=== PATIENT | male | born 1935 | race Asian ===

== ENCOUNTER 2016-02-20 11:10 | Observation (INO) | payer OTHER ==
--- NOTE | 2016-02-20 11:49 | CPEKG ---
Heart Rate: 77 RR Interval: 779 P-R Interval: 160 QRSD Interval: 90 QT Interval: 400 QTC Interval: 453 P [place]: 32 QRS [place]: -21 T Wave [place]: 4 EKG Severity - ABNORMAL ECG - EKG Impression: SINUS RHYTHM EKG Impression: PROBABLE LEFT ATRIAL ABNORMALITY EKG Impression: INFERIOR INFARCT, AGE INDETERMINATE Electronically Signed By: Theodora Kaur 20-Feb-2016 15:20:41
[2016-02-20 11:56] LABS: ABSOLUTE IMMATURE GRANULOCYTES 0.08 10^3/uL (0.00-0.10); ADD DIFF? NO; ADD MORPH? NO; ADD SCAN? NO; ATYPICAL LYMPHOCYTE FLAG 0 (0-99); FRAGMENT RBC FLAG 0 (0-99); HEMOGLOBIN 16.1 g/dL (13.7-17.5); LEFT SHIFT FLG 0 (0-99); LIPEMIA HEMOLYSIS FLAG 90 (0-99); MEAN CELL HEMOGLOBIN 30.2 pg (27.9-34.1); MEAN CELL HEMOGLOBIN CONCENTR. 35.8 g/dL (32.4-36.7); MEAN CELL VOLUME 84.4 fL (81.5-99.8); MEAN PLATELET VOLUME 8.6 fL (8.7-11.7); PLATELET CLUMPS FLAG 0 (0-99); PLATELET COUNT 404 10^3/uL (150-400); RED BLOOD CELL COUNT 5.33 10^6/uL (4.40-6.38); RED CELL DISTRIBUTION WIDTH 12.9 % (11.5-15.2)
--- NOTE | 2016-02-20 11:56 | EDPHY ---
H & P Stated Complaint: HTN while at dentist office, pt had pseuophed and coffee this am - Personal History Current Tetanus/Diphtheria Vaccine: Yes Current Tetanus Diphtheria and Acellular Pertussis (TDAP): Yes - Medical/Surgical History Hx Asthma: No Hx Chronic Respiratory Disease: No Hx Diabetes: No Hx Cardiac Disease: No Hx Renal Disease: No Hx Cirrhosis: No Hx Alcoholism: No Hx HIV/AIDS: No Hx Splenectomy or Spleen Trauma: No Other PMH: JOINT PAIN/HTN, dental, siatic pain - Social History Smoking Status: Never smoked Time Seen by Provider: 02/20/16 11:40 HPI/ROS: CHIEF COMPLAINT: Dizziness, hypertension HISTORY OF PRESENT ILLNESS: Patient was at the dentist's office this morning when they noted that his blood pressure was elevated there he was therefore crown placement. At the time he noted some dizziness but no headache. No chest pain. No abdominal pain. No urinary complaints. Does have known hypertension, and takes Diovan for this. Despite this, he continues to take caffeine pills as well as Sudafed although he knows this is ill-advised. He has no neuro complaints. He feels much better at rest. No other associated complaints or modifying factors. REVIEW OF SYSTEMS: Ten systems reviewed and are negative unless otherwise noted in the HPI EXAMINATION General Appearance: Alert, no distress Head: normocephalic, atraumatic Eyes: Pupils equal and round, no conjunctival pallor or injection , cataract bilaterally. No subconjunctival hemorrhage or hyphema ENT, Mouth: Mucous membranes moist Neck: Normal inspection, supple, non-tender Respiratory: Lungs are clear to auscultation Cardiovascular: Regular rate and rhythm Gastrointestinal: Abdomen is soft and nontender Back: non-tender, no bony abnormalities Neurological: A&O, cranial nerves 2-12 grossly intact. nonfocal, Negative pronator drift. Strength is 5/5 symmetrically. Sensation intact symmetrically. Skin: Warm and dry, no rash Extremities: Nontender, no pedal edema Psychiatric: Mood and affect normal DIFFERENTIAL DIAGNOSES: 1. Hypertensive urgency 2. hypertension 3. dizziness 4. near syncope MDM: hypertension patient with known hypertension who continues to take caffeine pills and take Sudafed despite recommendations from his providers. He has no chest pain. He has no headache. He does have mild dizziness with ambulation. He has reportedly normal organ function from laboratory studies in the fall. He remains awake and alert conversant appropriately with normal neuro examination other than reported dizziness. Vital signs do reveal systolic hypertension of 180 with diastolic of 120. Otherwise vital signs are within normal limits. 13:30 Notified the patient's troponin is mildly elevated at 0.037. He is having no chest pain of any kind, and his EKG is not reveal any ischemia. He does however have persistent elevated systolic and diastolic blood pressure. He has no headache but does have some dizziness. CT scan of the head was read as unremarkable for acute findings. There is noted atrophy and mild calcification. Labs are otherwise within normal limits without any evidence of end-organ damage. However given the troponin, we will admit him for care. This has been discussed with the hospitalist by Dr. Kaur. he is admitted in stable condition with hypertension. Treatment will commence in the emergency department. EKG: Interpreted by Dr. Kaur SUPERVISION: Patient was evaluated in conjunction with Dr. Kaur. Please see their note for details. (Juancarlos Salmon) Constitutional: Initial Vital Signs Temperature (C) 36.5 C 02/20/16 11:21 Heart Rate 85 02/20/16 11:21 Respiratory Rate 16 02/20/16 11:21 Blood Pressure 201/115 H 02/20/16 11:21 O2 Sat (%) 98 02/20/16 11:21 O2 Delivery Mode Room Air Allergies/Adverse Reactions: aspirin Allergy (Mild, Verified 01/25/15 21:20) GI upset Home Medications: Medication Instructions Recorded Acetaminophen [Tylenol ES 500 mg 500 mg PO DAILY PRN 02/20/16 (*)] Atorvastatin Calcium [Lipitor 20 20 mg PO DAILY@182902/20/16 mg (*)] Herbals/Supplements -Info Only 1 ea PO DAILY 02/20/16 Naproxen Sodium [Aleve 220 MG (*)] 220 mg PO QID PRN 02/20/16 Sennosides/Docusate Sodium 1 each PO DAILY@1829 PRN 02/20/16 [Senna-Docusate Sodium Tablet] Valsartan/Hydrochlorothiazide 1 each PO DAILY@182902/20/16 [Diovan Hct 160-25 mg Tablet] Medical Decision Making - Diagnostics EKG Interpretation: 12 lead EKG is interpreted in Trace master View by emergency department physician. (Theodora Kaur) Imaging: Two-view chest x-ray reviewed by me in PACs. No acute pulmonary disease. ( Theodora Kaur) Other Provider: I have evaluated and participated in the management of this patient. My co- signature indicates that I have reviewed this chart and that I agree with the findings and the plan of care as documented. My personal history and physical findings include: 80-year-old with a history of hypertension for which she takes Diovan. He is compliant with his medication, taking it every evening. His blood pressures usually run in the 140/90 range. He does not check it regularly at home. This morning he saw his dentist and was found to be hypertensive, prompting his referral to the emergency department. Patient denies chest pain, shortness of breath, dizziness or lightheadedness, headache, and hematuria. On exam he is awake and alert. Heart is regular rate and rhythm without murmur. Lungs are clear to auscultation. Abdomen is soft and nontender. Extremities are without edema. I reviewed his EKG. I reviewed his laboratory studies which show a troponin that is very slightly elevated at 0.037. He has remained hypertensive in the emergency department with systolic pressures over 200 and diastolic pressures in the 110-120 range. I evaluated him three times during his stay in the department. At the time of my 2nd evaluation his blood pressure was 170/110. He is being given labetalol 100 mg orally. He is being admitted to the PCU by Dr. Felicia Fernández. At 3:50 p.m. is blood pressure is 163/125. He continues to deny chest pain. He does have signs of an inferior infarct on his EKG with Q-waves in leads 3 and AVF. By his report, he has never had a myocardial infarction. I suspect that his hypertension today is related to his use of caffeine and use of Sudafed. Differential diagnosis includes hypertensive emergency, hypertensive urgency, hypertension secondary to medication noncompliance, hypertension secondary to use of stimulants (Sudafed and caffeine), and acute coronary syndrome. (Theodora Kaur) - Data Points Laboratory Results: Laboratory Results 02/20/16 11:50 02/20/16 11:50 02/20/16 11:50 WBC 7.69 10^3/uL (3.80-9.50) RBC 5.33 10^6/uL (4.40-6.38) Hgb 16.1 g/dL (13.7-17.5) Hct 45.0 % (40.0-51.0) MCV 84.4 fL (81.5-99.8) MCH 30.2 pg (27.9-34.1) MCHC 35.8 g/dL (32.4-36.7) RDW 12.9 % (11.5-15.2) Plt Count 404 H 10^3/uL (150-400) MPV 8.6 L fL (8.7-11.7) Neut % (Auto) 73.2 % (39.3-74.2) Lymph % (Auto) 14.6 L % (15.0-45.0) [place] % (Auto) 8.5 % (4.5-13.0) Eos % (Auto) 2.3 % (0.6-7.6) Baso % (Auto) 0.4 % (0.3-1.7) Nucleat RBC Rel Count 0.0 % (0.0-0.2) Absolute Neuts (auto) 5.63 10^3/uL (1.70-6.50) Absolute Lymphs (auto) 1.12 10^3/uL (1.00-3.00) Absolute Monos (auto) 0.65 10^3/uL (0.30-0.80) Absolute Eos (auto) 0.18 10^3/uL (0.03-0.40) Absolute Basos (auto) 0.03 10^3/uL (0.02-0.10) Absolute Nucleated RBC 0.00 10^3/uL (0-0.01) Immature Gran % 1.0 % (0.0-1.1) Immature Gran # 0.08 10^3/uL (0.00-0.10) Sodium 127 L mEq/L (134-144) Potassium 4.1 mEq/L (3.5-5.2) Chloride 91 L mEq/L (97-110) Carbon Dioxide 24 mEq/l (22-31) Anion Gap 12 mEq/L (8-16) BUN 14 mg/dL (7-23) Creatinine 0.8 mg/dL (0.7-1.3) Estimated GFR > 60 Glucose 87 mg/dL (70-100) Calcium 9.9 mg/dL (8.5-10.4) Total Bilirubin 0.9 mg/dL (0.1-1.4) Conjugated Bilirubin 0.2 mg/dL (0.0-0.5) Unconjugated Bilirubin 0.7 mg/dL (0.0-1.1) AST 38 IU/L (17-59) ALT 26 IU/L (21-72) Alkaline Phosphatase 86 IU/L (38-126) Troponin I 0.037 H ng/mL (0-0.034) Total Protein 7.0 g/dL (6.3-8.2) Albumin 4.1 g/dL (3.5-5.0) Medications Given: Discontinued Medications Labetalol HCl (Trandate) 100 mg PO ONCE ONE Stop: 02/20/16 14:04 Last Admin: 02/20/16 14:45 Dose: 100 mg Departure - Departure Disposition: [facility] Acute Clinical Impression: Dizziness, Hypertensive emergency, Elevated troponin I level Hypertension Qualifiers: Hypertension type: essential hypertension Qualifier Code: (I10) Essential ( primary) hypertension Condition: Good
[2016-02-20 12:27] LABS: ALANINE AMINOTRANSFERASE 26 IU/L (21-72); ALBUMIN 4.1 g/dL (3.5-5.0); ALKALINE PHOSPHATASE 86 IU/L (38-126); ANION GAP 12 mEq/L (8-16); ASPARTATE AMINOTRANSFERASE 38 IU/L (17-59); BILIRUBIN,TOTAL 0.9 mg/dL (0.1-1.4); BILIRUBIN-CONJUGATED 0.2 mg/dL (0.0-0.5); BILIRUBIN-UNCONJUGATED 0.7 mg/dL (0.0-1.1); CALCIUM 9.9 mg/dL (8.5-10.4); CARBON DIOXIDE 24 mEq/l (22-31); CHLORIDE 91 mEq/L (97-110); CREATININE 0.8 mg/dL (0.7-1.3); GLOMERULAR FILTRATION RATE > 60; GLUCOSE 87 mg/dL (70-100); POTASSIUM 4.1 mEq/L (3.5-5.2); SODIUM 127 mEq/L (134-144)
[2016-02-20 12:37] LABS: TROPONIN I 0.037 ng/mL (0-0.034)
--- NOTE | 2016-02-20 13:17 | CT ---
CT Brain (Without Contrast) 1230 hours History: Dizziness, hypertensive urgency. Comparison: CT brain January 2015. Technique: Axial computed tomographic images of the brain without contrast. Dose reduction techniques were utilized. Findings: Ventricles, cisterns, and sulci are widened consistent with atrophy. No hydrocephalus, mid line shift/herniation, or epidural/subdural hematomas. No acute intraparenchymal hemorrhage or mass e ffect. Cerebrovascular atherosclerosis. Hypodensities in the white matter of bilateral cerebral hemis pheres. Bone windows demonstrate no displaced fractures. Paranasal sinuses and mastoid air cells are clear. Impression: 1. Mild atrophy. 2. No acute hemorrhage, hydrocephalus, or mass effect. 3. Cerebrovascular atherosclerosis. 4. No definite acute infarct. 5. Mild microvascular ischemic gliosis. 6. No brainstem or cerebellar hemorrhage. Findings and recommendations discussed with Emergency Department physician, Juancarlos Salmon PA-C, at 13 05 hours today. Final report concurs with initial preliminary interpretation.
[2016-02-20] MEDS ORDERED: LABETALOL HCL 100 MG TAB PO ONE (14:03)
--- NOTE | 2016-02-20 15:11 | DX ---
PA and Lateral Chest February 20, 2016 History: Persistent cough. Recent pneumonia. Comparison: None available. Findings: A nipple shadow overlies the left lung base. Scattered granulomas are suspected. There is n o pneumothorax or pleural effusion. Heart size is normal. The aorta is tortuous and ectatic. Chronic right rotator cuff tear is noted with severe subluxation of the humerus. Impressions 1. No acute findings in the chest. 2. Chronic tear of the right rotator cuff.
[2016-02-20] MEDS ORDERED: ACETAMINOPHEN 325 MG TAB PO PRN (15:51)
[2016-02-20] MEDS ORDERED: TEMAZEPAM 15 MG CAP PO PRN (15:51)
[2016-02-20] MEDS ORDERED: ONDANSETRON 4 MG/2 ML VIAL IVP PRN (15:51)
[2016-02-20] MEDS ORDERED: ONDANSETRON DISINTEGRATING 4 MG TAB PO PRN (15:51)
--- NOTE | 2016-02-20 16:16 | PDGENHP ---
History and Physical - Chief Complaint elevated blood pressure - History of Present Illness 80 yo male with h/o hypertension presents to ED from his dental office, where he was found to have elevated blood pressure prior to a crown procedure. He denies headache or vision changes, but reports some dizziness. He denies CP or SOB. No cough, fevers or chills. No N/V/D or abdominal pain, but he complains of hunger. He take Diovan for hypertension, but apparently uses caffeine pills and sudafed as well. In the Emergency department, he was found to have BP greater than 200/100 along with a mildly elevated troponin. He is admitted to the hospital for further management. History Information - Allergies/Home Medication List Allergies/Adverse Reactions: aspirin Allergy (Mild, Verified 01/25/15 21:20) GI upset Home Medications: Acetaminophen [Tylenol ES 500 mg (*)] 500 mg PO DAILY PRN 02/20/16 [Last Taken Unknown] Atorvastatin Calcium [Lipitor 20 mg (*)] 20 mg PO DAILY@182902/20/16 [Last Taken 02/19/16] Herbals/Supplements -Info Only 1 ea PO DAILY 02/20/16 [Last Taken Unknown] Naproxen Sodium [Aleve 220 MG (*)] 220 mg PO QID PRN 02/20/16 [Last Taken Unknown] Sennosides/Docusate Sodium [Senna-Docusate Sodium Tablet] 1 each PO DAILY@1829 PRN 02/20/16 [Last Taken Unknown] Valsartan/Hydrochlorothiazide [Diovan Hct 160-25 mg Tablet] 1 each PO DAILY@ 182902/20/16 [Last Taken 02/19/16] I have personally reviewed and updated: family history, medical history, social history, surgical history - Past Medical History hypertension - Surgical History Reports: no pertinent surgical hx - Family History Positive for: hypertension - Social History Smoking Status: Never smoked Alcohol Use: None Drug Use: None (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 He drinks caffeine regularly.) Review of Systems ROS: 10pt was reviewed & negative except for what was stated in HPI & below Physical Exam Temp Pulse Resp BP Pulse Ox 36.9 C 76 16 192/121 H 94 02/20/16 12:59 02/20/16 13:00 02/20/16 13:00 02/20/16 13:00 02/20/16 13:00 Constitutional: no apparent distress Eyes: PERRL Ears, Nose, Mouth, Throat: moist mucous membranes Cardiovascular: regular rate and rhythym, no murmur, rub, or gallop Respiratory: no respiratory distress, clear to auscultation Gastrointestinal: normoactive bowel sounds, soft, non-tender abdomen Skin: warm Musculoskeletal: full muscle strength Neurologic: AAOx3 Psychiatric: interacting appropriately Lab Data & Imaging Review 02/20/16 11:50 02/20/16 11:50 WBC 7.69 10^3/uL (3.80-9.50) 02/20/16 11:50 RBC 5.33 10^6/uL (4.40-6.38) 02/20/16 11:50 Hgb 16.1 g/dL (13.7-17.5) 02/20/16 11:50 Hct 45.0 % (40.0-51.0) 02/20/16 11:50 MCV 84.4 fL (81.5-99.8) 02/20/16 11:50 MCH 30.2 pg (27.9-34.1) 02/20/16 11:50 MCHC 35.8 g/dL (32.4-36.7) 02/20/16 11:50 RDW 12.9 % (11.5-15.2) 02/20/16 11:50 Plt Count 404 10^3/uL (150-400) H 02/20/16 11:50 MPV 8.6 fL (8.7-11.7) L 02/20/16 11:50 Neut % (Auto) 73.2 % (39.3-74.2) 02/20/16 11:50 Lymph % (Auto) 14.6 % (15.0-45.0) L 02/20/16 11:50 [place] % (Auto) 8.5 % (4.5-13.0) 02/20/16 11:50 Eos % (Auto) 2.3 % (0.6-7.6) 02/20/16 11:50 Baso % (Auto) 0.4 % (0.3-1.7) 02/20/16 11:50 Nucleat RBC Rel Count 0.0 % (0.0-0.2) 02/20/16 11:50 Absolute Neuts (auto) 5.63 10^3/uL (1.70-6.50) 02/20/16 11:50 Absolute Lymphs (auto) 1.12 10^3/uL (1.00-3.00) 02/20/16 11:50 Absolute Monos (auto) 0.65 10^3/uL (0.30-0.80) 02/20/16 11:50 Absolute Eos (auto) 0.18 10^3/uL (0.03-0.40) 02/20/16 11:50 Absolute Basos (auto) 0.03 10^3/uL (0.02-0.10) 02/20/16 11:50 Absolute Nucleated RBC 0.00 10^3/uL (0-0.01) 02/20/16 11:50 Immature Gran % 1.0 % (0.0-1.1) 02/20/16 11:50 Immature Gran # 0.08 10^3/uL (0.00-0.10) 02/20/16 11:50 Sodium 127 mEq/L (134-144) L 02/20/16 11:50 Potassium 4.1 mEq/L (3.5-5.2) 02/20/16 11:50 Chloride 91 mEq/L (97-110) L 02/20/16 11:50 Carbon Dioxide 24 mEq/l (22-31) 02/20/16 11:50 Anion Gap 12 mEq/L (8-16) 02/20/16 11:50 BUN 14 mg/dL (7-23) 02/20/16 11:50 Creatinine 0.8 mg/dL (0.7-1.3) 02/20/16 11:50 Estimated GFR > 60 02/20/16 11:50 Glucose 87 mg/dL (70-100) 02/20/16 11:50 Calcium 9.9 mg/dL (8.5-10.4) 02/20/16 11:50 Total Bilirubin 0.9 mg/dL (0.1-1.4) 02/20/16 11:50 Conjugated Bilirubin 0.2 mg/dL (0.0-0.5) 02/20/16 11:50 Unconjugated Bilirubin 0.7 mg/dL (0.0-1.1) 02/20/16 11:50 AST 38 IU/L (17-59) 02/20/16 11:50 ALT 26 IU/L (21-72) 02/20/16 11:50 Alkaline Phosphatase 86 IU/L (38-126) 02/20/16 11:50 Troponin I 0.037 ng/mL (0-0.034) H 02/20/16 11:50 Total Protein 7.0 g/dL (6.3-8.2) 02/20/16 11:50 Albumin 4.1 g/dL (3.5-5.0) 02/20/16 11:50 Assessment & Plan Assessment: Hypertensive urgency - Elevated BP likely exacerbated by use of Sudafed and caffeine. Pt received 100 mg po Labetalol in ED and though SBP improved to 160' s, DBP still quite elevated at 125. CXR clear. CT head neg. -admit to PCU -start nicardipine drip with goal to reduce DBP <100 -continue oral meds and up-titrate as needed to wean off drip Elevated troponin - Mild. Pt is CP free. EKG shows no acute ischemia, but there are some Q waves in inferior leads. Pt denies h/o NH. -trend troponin -repeat EKG -check echo, query LVH, eval for WMA Hyponatremia - this is acute, prior Na level ~140. -fluid restrict -defer IVF's for now -check urine Na, Cr -repeat in am DVT PPLX - Lovenox Full code Dispo - obs.
[2016-02-20] MEDS ORDERED: METOPROLOL TARTRATE 25 MG TAB PO SCH (16:30)
[2016-02-20] MEDS ORDERED: niCARdipine/NACL 200 ML IV SCH (16:30)
[2016-02-20] MEDS ORDERED: VALSARTAN PO SCH (18:30)
[2016-02-20] MEDS ORDERED: [UNRECOGNIZED DRUG - OTHER] PO SCH (18:30)
[2016-02-20] MEDS ORDERED: ATORVASTATIN CALCIUM 20 MG TAB PO SCH (18:30)
[2016-02-20] MEDS ORDERED: VALSARTAN 160 MG TAB PO SCH (18:30)
[2016-02-20] MEDS ORDERED: HYDROCHLOROTHIAZIDE PO SCH (18:30)
[2016-02-20] MEDS ORDERED: HYDROCHLOROTHIAZIDE 25 MG TAB PO SCH (18:30)
[2016-02-20] MEDS ORDERED: SENNOSIDES/DOCUSATE SODIUM TAB PO PRN (18:30)
[2016-02-20] MEDS: METOPROLOL TARTRATE 25 MG TAB PO SCH (20:55)
[2016-02-21 05:17] LABS: ANION GAP 12 mEq/L (8-16); CALCIUM 9.6 mg/dL (8.5-10.4); CARBON DIOXIDE 24 mEq/l (22-31); CHLORIDE 93 mEq/L (97-110); CREATININE 1.1 mg/dL (0.7-1.3); GLOMERULAR FILTRATION RATE > 60; GLUCOSE 89 mg/dL (70-100); SODIUM 129 mEq/L (134-144)
[2016-02-21 05:53] VITALS: RESP 16
[2016-02-21 07:15] VITALS: BP 142/78; PULSE 61; TEMP 97.3; O2SAT 90
[2016-02-21] MEDS ORDERED: HYDROCHLOROTHIAZIDE PO SCH (08:00)
[2016-02-21] MEDS ORDERED: [UNRECOGNIZED DRUG - OTHER] PO SCH (08:00)
[2016-02-21] MEDS ORDERED: VALSARTAN PO SCH (08:00)
[2016-02-21] MEDS: METOPROLOL TARTRATE 25 MG TAB PO SCH (08:02)
[2016-02-21] MEDS ORDERED: ENOXAPARIN 40 MG/0.4 ML SYR SC SCH (09:00)
--- NOTE | 2016-02-21 09:10 | CPEKG ---
Heart Rate: 60 RR Interval: 1000 P-R Interval: 176 QRSD Interval: 86 QT Interval: 456 QTC Interval: 456 P [place]: 47 QRS [place]: 26 T Wave [place]: -86 EKG Severity - ABNORMAL ECG - EKG Impression: SINUS RHYTHM EKG Impression: bi-atrial enlargement EKG Impression: probable RVH and LVH. EKG Impression: ST depression lateral c/w LVH strain. Electronically Signed By: Kale Aguilar 21-Feb-2016 16:48:10
--- NOTE | 2016-02-21 10:52 | ECHO ---
[id number] + + [id number] : : [place] [id number] : : [phone] + + Adult Echocardiographic Report + ---+ :Name: SYLVIA ALEXANDRAKASEY JStudy Date: 02/20/2016 04:44 PM BP: 170/116 mmHg : : Hospital Admission Number: [id number] Location: ER: :: 1935 Gender: Male Height: 66 in : :Age: 80 yrs Race: Weight: 165 lb : :Reason For Study: HTN : : BSA: 1.8 meters2 : :History: hypertensive urgency, LVH on ecg : + ---+ MMode/2D Measurements & Calculations IVSd: 1.3 cm RVDd: 3.2 cm FS: 42.0 % Ao root diam: LVPWd: 0.95 cm LVIDd: 3.5 cm EDV(Teich): 52.6 ml 3.5 cm LVIDs: 2.1 cm ESV(Teich): 13.7 ml LA dimension: EF(Teich): 73.9 % 3.3 cm LVOT diam: LVLd ap4: 9.6 cm SV(MOD-sp4): 1.9 cm EDV(MOD-sp4): 136.0 ml LVOT area: 185.0 ml 2.8 cm2 LVLs ap4: 8.2 cm ESV(MOD-sp4): 49.0 ml EF(MOD-sp4): 73.5 % Normal Measurement Values: + + :LVIDd (3.5-5.7cm) IVSd (0.6-1.1cm) LVPWd (0.6-1.1cm) Aortic Root (2.0-3.7cm)Left Atrium (1.5-4.0cm): :LV Vol(d) (76-115ml) LV Vol(s) (29-48ml) Ejec Fraction (50-65%)PV Terry (0.6- 1.2m/s) TV Terry (0.4-1.0m/s) : :MV E Terry (0.8-1.0m/s)MV A Terry (0.3-1.0m/s)LVOT Terry (0.7-1.2m/s) Asc Ao Terry ( 0.9-1.8m/s) : + + Doppler Measurements & Calculations MV E max terry: Ao V2 max: AI max terry: LV V1 max: 49.4 cm/sec 162.0 cm/sec 277.0 cm/sec 103.0 cm/sec MV A max terry: Ao max PG: AI max P.7 mmHgLV V1 max P.0 cm/sec 10.5 mmHg AI dec slope: 4.2 mmHg MV E/A: 0.44 ANDRES(V,D): 1.8 cm2 107.0 cm/sec2 MV dec time: AI P1/2t: 758.2 msec 0.35 sec PA V2 max: TR max terry: 88.0 cm/sec 273.0 cm/sec PA max P.1 mmHgTR max P.8 mmHg RAP systole: 5.0 mmHg RVSP(TR): 34.8 mmHg Left Ventricle The left ventricle is normal in size and function. There is mild concentric left ventricular hypertrophy. Ejection Fraction = 70-75%. There is Doppler evidence for diastolic dysfunction. No regional wall motion abnormalities noted. Right Ventricle The right ventricle is normal in size and function. Atria The left atrial size is normal. Right atrial size is normal. Mitral Valve The mitral valve leaflets appear thickened, but open well. There is no mitral valve stenosis. There is mild to moderate mitral regurgitation. Tricuspid Valve The tricuspid valve is normal in structure and function. There is no tricuspid stenosis. There is mild tricuspid regurgitation. Right ventricular systolic pressure is 35mmHg. There is Doppler evidence for mild pulmonary hypertension. Aortic Valve The aortic valve is trileaflet. Mild Aortic Valve Calcification. There is no aortic stenosis. Mild aortic regurgitation. Pulmonic Valve The pulmonic valve is not well visualized. Great Vessels Borderline aortic root dilatation. Pericardium/Pleural There is no pericardial effusion. Conclusion A two-dimensional transthoracic echocardiogram, with color flow Doppler was performed. The left ventricle is normal in size and function. There is mild concentric left ventricular hypertrophy. Ejection Fraction = 70-75%. There is Doppler evidence for diastolic dysfunction. There is mild to moderate mitral regurgitation. There is mild tricuspid regurgitation. Right ventricular systolic pressure is 35mmHg. There is Doppler evidence for mild pulmonary hypertension. Mild aortic regurgitation. Borderline aortic root dilatation. Final Reading Physician: Eric Leroy MD electronically signed on 02/21/2016 10:51 AM Ordering Physician: Felicia Fernández Performed By: Lary Wynne
--- NOTE | 2016-02-21 21:03 | GDS ---
[f rep st] DISCHARGE SUMMARY DISCHARGE DIAGNOSES: 1. Hypertensive urgency. 2. Hyponatremia, improved. 3. Minimally elevated troponin which normalized. 4. Left ventricular hypertrophy by echocardiogram. HISTORY: For details, please see dictated history and physical by myself dated February 20, 2016. In brief, Mr. Segura is an 80-year-old male with a history of hypertension, who was found to have a markedl y elevated blood pressure in his dentist's office and was sent to the Emergency Department. In the E mergency Department, he complained of some vague dizziness, but otherwise denied headache, vision giana nges, chest pain, or shortness of breath. Given his markedly elevated blood pressure, he was is admi tted to the hospital for further management. HOSPITAL COURSE: In the Emergency Department, the patient received 100 mg of oral labetalol. A muade rdipine drip was ordered for slow, downward titration of his blood pressure, with a goal of 10-20% in itially. He was continued on his usual oral medication of valsartan/hydrochlorothiazide and low-dose metoprolol was added at 12.5 mg p.o. b.i.d. The following morning, his blood pressure had improved to 142/78. He also had a blood pressure as low as 117/64 earlier this morning. An echocardiogram wa s obtained, as his EKG was suggestive of LVH and indeed he does have mild concentric LVH. He had a m inimally elevated troponin on arrival of 0.037. Two more troponins following that were completely no rmal. The patient was chest pain-free and had a nonischemic EKG. I suspect this very minimal tropon in elevation was secondary to strain in the setting of a markedly elevated blood pressure. The patie nt reportedly takes Sudafed and drinks a lot of caffeine, and based on my conversation with him, it s ounds as though he only takes his blood pressure medications when he believes his blood pressure is e levated. I discussed with him at discharge the importance of taking his blood pressure medication ev day and he should avoid Sudafed. DISPOSITION: Patient is discharged home in stable condition. FOLLOWUP: The patient will follow up with his primary care physician, Dr. Joe Chilel, in 1-2 we eks for a blood pressure recheck and up-titration of medications as needed. DISCHARGE MEDICATIONS: Please see eSNF for complete updated outpatient medication list. New medications on discharge include: Metoprolol 12.5 mg p.o. b.i.d. (#30, no refills). /[id number]/MODL
== END 2016-02-21 10:58 | disposition home or self-care (01) ==
LOC: F2W 17:51
PROVIDERS: ADMIT Hospitalist; ATTEND Hospitalist
DX: I16.0 Hypertensive urgency (principal); E87.1 Hypo-osmolality and hyponatremia; R78.89 Finding of other specified substances, not normally found in blood; I51.7 Cardiomegaly; Z79.899 Other long term (current) drug therapy; M75.101 Unspecified rotator cuff tear or rupture of right shoulder, not specified as traumatic
CPT/HCPCS: 70450; 71020; 93005; 93306; 99285; G0378; J1650

== ENCOUNTER 2017-05-22 13:37 | Emergency (ER) | payer OTHER ==
[2017-05-22] MEDS ORDERED: PANTOPRAZOLE SODIUM 40 MG VIAL IVP ONE (14:01)
--- NOTE | 2017-05-22 14:07 | EDPHY ---
General - History Smoking Status: Never smoked Time Seen by Provider: 05/22/17 14:01 Narrative: CHIEF COMPLAINT: Vomiting, abdominal pain HISTORY OF PRESENT ILLNESS: Patient presents with complaints of epigastric abdominal pain and 1 episode of vomiting. He reports feeling nauseated last night and awoke at 4:00 a.m. Abruptly with 1 episode of vomiting. It is described as a "black liquid and food." Since then he has had epigastric abdominal pain. He feels that this is food poisoning as he ate a "tuvaluan tart" that was supposed to be could 1st. He has had no diarrhea. No constipation. No chest pain or shortness of breath. Epigastric pain is constant. It is mild to moderate. Worse with exertion. Worse when he attempted to drink water. No fever or chills. No trauma or injury. No bright red blood per emesis. No history of cirrhosis or varices. No previous abdominal pathology. Denies any alcohol use. No other associated complaints or modifying factors. REVIEW OF SYSTEMS: Ten systems reviewed and are negative unless otherwise noted in the HPI PCP: Dr. Mchugh SPECIALISTS: None PAST MEDICAL HISTORY: Hypertension, osteoarthritis PAST SURGICAL HISTORY: No recent surgeries. No history of abdominal surgery SOCIAL HISTORY: Nonsmoker. 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 Well-developed well-nourished but ambulating in the room. Head: normocephalic, atraumatic Eyes: Pupils equal and round, no conjunctival pallor or injection ENT, Mouth: Mucous membranes moist. Due to the midline. Neck: Normal inspection, supple, non-tender Respiratory: Lungs are clear to auscultation Cardiovascular: Regular rate and rhythm Gastrointestinal: Abdomen is soft and nondistended. Mild tenderness in the epigastrium. No palpable mass. No guarding. No rebound tenderness. No rigidity. No CVA tenderness strict Back: non-tender, no bony abnormalities Neurological: A&O, nonfocal, normal gait Skin: Warm and dry, no rash no petechiae or purpura Extremities: Nontender, no pedal edema Psychiatric: Mood and affect normal DIFFERENTIAL DIAGNOSES: Including but not limited to gastritis, gastroenteritis, ACS, pancreatitis, cholecystitis, cholelithiasis, esophagitis MDM: 2:00 p.m. Epigastric abdominal pain with 1 episode of vomiting late last night. No diarrhea. No bright red blood poor emesis but he does report dark liquid. He is declining a rectal exam at this time. He is in no acute distress. He has a benign abdominal examination with some tenderness in the epigastrium. Vital signs are stable with hypertension. I have ordered CT scan abdomen pelvis with IV laboratory studies and IV Protonix. I will discuss with Dr. Salgado. 2:08 p.m. Case discussed with Dr. Salgado. 2:45 p.m. Notified by RN. Patient blood pressure is elevated further than time arrival. Patient is not taking his blood pressure medication last night and this morning due to his complaints. I discussed with Dr. Salgado, I have ordered IV metoprolol as he takes p.o. Metoprolol. CBC is unremarkable and chemistry is pending. 3:[address] scan pending. 3:40 p.m. Notified by radiologist Dr. Crowe. CT scan of the abdomen pelvis reveals no acute findings. 3:55 p.m. Patient re-evaluated. He had just received the GI cocktail 5 min prior to me arriving. He also received Zofran at that time. When I entered the room, he vomited a small amount of dark brown emesis. I have sent a sample for occult blood. 4:30 p.m. Gastrocult is positive. I have re-evaluated the patient. He is tolerating intake of liquids and crackers at this time. Patient is suspected peptic ulcer , possible upper GI bleed. I did offer and recommend admission to the hospital given the patient's age, but he is declining. He has full capability of making this decision. His spouse is also adamant about going home. We discussed discharge home with Pepcid/antacid. We discussed clear liquid diet advancing slowly as tolerated. We discussed contacting primary care physician and GI physician for referral. We discussed ED precautions for any return of jens blood in the emesis, persistent vomiting, fever, chest pain or abdominal pain. He is comfortable this plan and discharged home stable condition. SUPERVISION: Patient was evaluated and examined in conjunction with my secondary supervising physician as documented. We have both examined the patient. (Juancarlos Salmon) Medical Decision Makin:30 p.m. I did examine the patient independently. He has no abdominal tenderness on my exam. He tells me that he does have symptoms consistent with peptic ulcer disease versus heartburn. He states that he occasionally gets upset stomach after eating and that there may have been blood in his vomit last night. His however states that he does not have ulcers and that he has a strong stomach and that he simply got food poisoning. I will give him a GI cocktail and Zofran and we are awaiting CT results. I suspect that he will need a endoscopy by GI at some point whether it is inpatient or outpatient. ( Marek Salgado) - Objective Vital Signs: Initial Vital Signs Temperature (C) 97.9 F 05/22/17 13:40 Heart Rate 90 05/22/17 13:40 Respiratory Rate 18 05/22/17 13:40 Blood Pressure 171/120 H 05/22/17 13:40 O2 Sat (%) 95 05/22/17 13:40 O2 Delivery Mode Room Air Allergies/Adverse Reactions: aspirin Allergy (Mild, Verified 05/22/17 13:37) GI upset Home Medications: Medication Instructions Recorded Acetaminophen [Tylenol ES 500 mg 500 mg PO DAILY PRN 02/20/16 (*)] Atorvastatin Calcium [Lipitor 20 20 mg PO DAILY@182902/20/16 mg (*)] Herbals/Supplements -Info Only 1 ea PO DAILY 02/20/16 Naproxen Sodium [Aleve 220 MG (*)] 220 mg PO QID PRN 02/20/16 Sennosides/Docusate Sodium 1 each PO DAILY@1829 PRN 02/20/16 [Senna-Docusate Sodium Tablet] Valsartan/Hydrochlorothiazide 1 each PO DAILY@182902/20/16 [Diovan Hct 160-25 mg Tablet] Metoprolol Tartrate [Lopressor 25 12.5 mg PO BID #30 tab 02/21/16 mg (*)] Famotidine [Pepcid 20 MG (*)] 20 mg PO BID #30 tab 05/22/17 Laboratory Results: Laboratory Results 05/22/17 14:06 05/22/17 14:06 Medications Given: Discontinued Medications Al Hydroxide/Mg Hydroxide (Maalox Susp) 30 ml PO ONCE ONE Stop: 05/22/17 15:30 Last Admin: 05/22/17 15:50 Dose: 30 ml Hyoscyamine Sulfate (Levsin, Hyomax-Sl) 0.25 mg PO ONCE ONE Stop: 05/22/17 15:30 Last Admin: 05/22/17 15:50 Dose: 0.25 mg Lidocaine (Lidocaine 2% Viscous) 15 ml PO ONCE ONE Stop: 05/22/17 15:30 Last Admin: 05/22/17 15:51 Dose: 15 ml Metoprolol Tartrate (Lopressor Injection) 5 mg IVP EDNOW ONE Stop: 05/22/17 14:46 Last Admin: 05/22/17 15:02 Dose: 5 mg Ondansetron HCl (Zofran) 4 mg IVP EDNOW ONE Stop: 05/22/17 15:30 Last Admin: 05/22/17 15:50 Dose: 4 mg Pantoprazole Sodium (Protonix) 40 mg IVP EDNOW ONE Stop: 05/22/17 14:02 Last Admin: 05/22/17 14:33 Dose: 40 mg Departure - Departure Disposition: Home, Routine, Self-Care Clinical Impression: Peptic ulcer disease Vomiting Qualifiers: Vomiting type: hematemesis Nausea presence: with nausea Qualified Code(s): K92.0 - Hematemesis Condition: Good Instructions: Peptic Ulcer (ED), Gastritis (ED) Additional Instructions: 1. Pepcid as prescribed until seen by primary care physician or GI physician 2. Contact primary care physician for re-evaluation and GI referral 3. Return to emergency department for any bright red blood per emesis, persistent emesis, fever, chest pain Referrals: Capri Woodward MD [Medical Doctor] - As per Instructions Willis Wang MD, FACG [Medical Doctor] - As per Instructions Prescriptions: Famotidine [Pepcid 20 MG (*)] 20 mg PO BID #30 tab
[2017-05-22 14:20] LABS: PLATELET COUNT 347 10^3/uL (150-400)
[2017-05-22] MEDS ORDERED: METOPROLOL TARTRATE 5 MG/5 ML INJ IVP ONE (14:45)
--- NOTE | 2017-05-22 14:51 | CPEKG ---
Heart Rate: 79 RR Interval: 759 P-R Interval: 172 QRSD Interval: 84 QT Interval: 384 QTC Interval: 441 P [place]: 18 QRS [place]: -11 T Wave [place]: -50 EKG Severity - ABNORMAL ECG - EKG Impression: SINUS RHYTHM EKG Impression: PROBABLE LEFT ATRIAL ABNORMALITY EKG Impression: INFERIOR INFARCT, AGE INDETERMINATE EKG Impression: CONSIDER POSTERIOR WALL INVOLVEMENT Electronically Signed By: Capri Woodward 23-May-2017 12:30:23
[2017-05-22] MEDS ORDERED: IOPAMIDOL (ISOVUE-300) 100 ML BTL ONE (14:58)
[2017-05-22] MEDS ORDERED: MAG HYDROX/AL HYDROX/SIMETH 30 ML UDCUP PO ONE (15:29)
[2017-05-22] MEDS ORDERED: HYOSCYAMINE SULFATE 0.125 MG TAB PO ONE (15:29)
[2017-05-22] MEDS ORDERED: LIDOCAINE 2% VISCOUS 15 ML UDCUP PO ONE (15:29)
[2017-05-22] MEDS ORDERED: ONDANSETRON 4 MG/2 ML VIAL IVP ONE (15:29)
[2017-05-22 17:03] VITALS: BP 141/127
== END 2017-05-22 17:05 | disposition home or self-care (01) ==
DX: K27.9 Peptic ulcer, site unspecified, unspecified as acute or chronic, without hemorrhage or perforation (principal); K92.0 Hematemesis; I10 Essential (primary) hypertension
CPT/HCPCS: 74177; 93005; 96374; 96375; 99285; J2405; Q9967

== ENCOUNTER → 2017-07-01 | Outpatient (CLI) | payer OTHER | LOC: FIMAGING 06:55 | PROVIDERS: ATTEND Orthopaedic Surgery Sports Medicine | DX: M23.221 Derangement of posterior horn of medial meniscus due to old tear or injury, right knee (principal); M17.11 Unilateral primary osteoarthritis, right knee; M25.461 Effusion, right knee; M71.21 Synovial cyst of popliteal space [Baker], right knee ==

== ENCOUNTER → 2017-11-19 | Outpatient (CLI) | payer OTHER ==
[~2017-11-19] MED LIST: IOPAMIDOL (ISOVUE 370) 100 ML BTL IV ONE
== END ==
LOC: FIMAGING 14:14
PROVIDERS: ATTEND Surgery
DX: I73.9 Peripheral vascular disease, unspecified (principal)
CPT/HCPCS: 75635; Q9967; 82565-PO

== ENCOUNTER 2018-01-09 14:30 | Emergency (ER) | payer OTHER ==
[2018-01-09 14:39] VITALS: BP 165/85
--- NOTE | 2018-01-09 14:41 | EDPHY ---
H & P Stated Complaint: L abd bruising Time Seen by Provider: 01/09/18 14:40 - Personal History Current Tetanus/Diphtheria Vaccine: Unsure Current Tetanus Diphtheria and Acellular Pertussis (TDAP): Unsure - Medical/Surgical History Hx Asthma: No Hx Chronic Respiratory Disease: No Hx Diabetes: No Hx Cardiac Disease: No Hx Renal Disease: No Hx Cirrhosis: No Hx Alcoholism: No Hx HIV/AIDS: No Hx Splenectomy or Spleen Trauma: No Other PMH: JOINT PAIN/HTN, dental, siatic pain, HTN - Social History Smoking Status: Never smoked Constitutional: Initial Vital Signs Temperature (C) 36.5 C 01/09/18 14:36 Heart Rate 69 01/09/18 14:36 Respiratory Rate 16 01/09/18 14:36 Blood Pressure 165/85 H 01/09/18 14:36 O2 Sat (%) 93 01/09/18 14:36 O2 Delivery Mode Room Air Allergies/Adverse Reactions: aspirin Allergy (Mild, Verified 01/09/18 14:35) GI upset Home Medications: Medication Instructions Recorded Acetaminophen [Tylenol ES 500 mg 500 mg PO DAILY PRN 02/20/16 (*)] Atorvastatin Calcium [Lipitor 20 20 mg PO DAILY@182902/20/16 mg (*)] Herbals/Supplements -Info Only 1 ea PO DAILY 02/20/16 Naproxen Sodium [Aleve 220 MG (*)] 220 mg PO QID PRN 02/20/16 Sennosides/Docusate Sodium 1 each PO DAILY@1829 PRN 02/20/16 [Senna-Docusate Sodium Tablet] Valsartan/Hydrochlorothiazide 1 each PO DAILY@182902/20/16 [Diovan Hct 160-25 mg Tablet] Metoprolol Tartrate [Lopressor 25 12.5 mg PO BID #30 tab 02/21/16 mg (*)] Famotidine [Pepcid 20 MG (*)] 20 mg PO BID #30 tab 05/22/17 Fluconazole [Diflucan (*)] 100 mg PO DAILY #7 tab 01/09/18 HCTZ (*) 01/09/18 Medical Decision Making ED Course/Re-evaluation: CHIEF COMPLAINT: Left-sided abdominal bruising HISTORY OF PRESENT ILLNESS: The patient is an 82 y/o male with a history of hypertension arriving with his complaining of left-sided abdominal bruising he first noticed last night in the shower. He developed a cough last week and developed some mild abdominal pain that was exacerbated by coughing. He went to see his PCP 3 days ago and was treated for a viral URI. He has been using OTC medications for this including frequent doses of NyQuil and reports his cough and symptoms have improved. Last night he first noticed abdominal bruising, though his thinks it has been there for longer. He went to urgent care for evaluation and was referred here. He also has been itching his lower abdomen and groin for the last several days and has a notable rash on exam. He denies anticoagulant or aspirin, history of clotting disorders, recent trauma, or other complaints. REVIEW OF SYSTEMS: A comprehensive 10 system review of systems is otherwise negative aside from elements mentioned in the history of present illness and medical decision making. PHYSICAL EXAM: HR, BP, O2 Sat, RR. Temp noted General Appearance: Alert, well hydrated, appropriate, and non-toxic appearing. Head: Atraumatic without scalp tenderness or obvious injury Eyes: Pupils equal, round, reactive to light and accommodation, EOMI, no trauma , no injection. Nose: Atraumatic, no rhinorrhea, clear. Throat: Mucus membranes moist. Neck: Supple,nontender, no lymphadenopathy. Respiratory: No retractions, no distress, no wheezes, and no accessory muscle use. Lungs are clear to auscultation bilaterally. Cardiovascular: Regular rate and rhythm, no murmurs, rubs, or gallops. Good capillary refill all extremities. Gastrointestinal: Abdomen is soft, non-distended, no masses, no rebound, no guarding, no peritoneal signs. Left-sided bruising with yellow margins extends from lateral side to midline. Erythematous and excoriated rash along lower abdomen and near groin. Musculoskeletal: Normal active ROM of all extremities, atraumatic. Neurological: Alert, appropriate, and interactive. The patient has non-focal cranial nerves, motor, sensory, and cerebellar exam. Skin: No rashes, good turgor, no nodules on palpation. Past medical history: Hypertension - metoprolol, HCTZ. Hyperlipidemia - statin. Past surgical history: Prostatectomy Family history: no history of bleeding disorder Social history: Nonsmoker, no alcohol, no illicit drugs. at bedside. PCP: Dr. Woodward DIFFERENTIAL DIAGNOSIS: The differential diagnosis included but was not limited to burst superficial vessel due to coughing, bleeding disorder, trauma, fungal skin rash, drug rash. MEDICAL DECISION MAKING: This is an 82 y/o male with a history of hypertension who presents with left- sided abdominal bruising and lower abdomen and groin rash. Abdomen is nontender. The bruising appeared after a period of heavy frequent coughing and is consistent with a ruptured superficial vessel from coughing. His rash appeared a few days ago and is erythematous and pruritic with areas of excoriation. No indication for imaging at this time. Patient will be discharged with fluconazole for what is likely a fungal rash. Recommended PCP follow up early next week. Strict return precautions discussed. Departure - Departure Disposition: Home, Routine, Self-Care Clinical Impression: Rash Superficial bruising of abdominal wall Qualifiers: Encounter type: initial encounter Qualified Code(s): S30.1XXA - Contusion of abdominal wall, initial encounter Condition: Good Instructions: Acute Rash (ED), Ecchymosis (ED) Additional Instructions: 1. Take Fluconazole as directed for rash. Be sure to complete the entire medication. 2. Follow up with your primary care provider on Friday for reevaluation. 3. Return to the ED for any worsening of condition. Referrals: Capri Woodward MD [Primary Care Provider] - As per Instructions Prescriptions: Fluconazole [Diflucan (*)] 100 mg PO DAILY #7 tab Report Scribed for: Julio C Rodriguez Report Scribed by: Vivian Hensley Date of Report: 01/09/18 Time of Report: 15:01
== END 2018-01-09 15:18 | disposition home or self-care (01) ==
DX: S30.1XXA Contusion of abdominal wall, initial encounter (principal); R21 Rash and other nonspecific skin eruption; I10 Essential (primary) hypertension; X58.XXXA Exposure to other specified factors, initial encounter; Y92.9 Unspecified place or not applicable; Y93.9 Activity, unspecified